=== PATIENT | male | born 1940 | race African-American/Black ===

== ENCOUNTER 2025-11-07 13:46 | Emergency (ER) | payer MEDICARE ==
[~2025-11-07] VITALS: Ht 175.3 cm; Wt 132.0 kg
[2025-11-07 13:51] VITALS: O2SAT 96
[2025-11-07 13:59] VITALS: BP 161/79; PULSE 75; RESP 14; TEMP 36.9; O2SAT 98
== END 2025-11-07 14:43 | disposition left against medical advice (07) ==
LOC: ER 13:46
DX: R07.89 Other chest pain (principal); Z53.29 Procedure and treatment not carried out because of patient's decision for other reasons
CPT/HCPCS: 93005; 99283